=== PATIENT | male | born 1955 | race Caucasian/White ===

== ENCOUNTER → 2018-01-10 06:37 | Outpatient (CLI) | payer BC, SELFPAY ==
--- NOTE | 2018-01-10 08:23 | AAAS_ITS ---
Reason For Study: AAA screening Aorta Measurements Aorta Doppler Measurements Proximal aorta measures1.8cm. in cross-sectional Peak systolic flow velocities within the proximal axis. aorta measure 75.7 cm/sec. Proximal aorta measures1.8 x 1.8cm. in Peak systolic flow velocities within the mid longitudinal axis. aorta measure 101.0 cm/sec. Mid aorta measures1.6 x 1.7cm. in longitudinal Peak systolic flow velocities within the distal axis. aorta measure 86.7 cm/sec. Mid aorta measures1.7cm. in cross-sectional axis. Distal aorta measures1.5 x 1.6cm. in cross- sectional axis. Distal aorta measures1.5cm. in longitudinal axis. Procedure Aorta IVC Iliac vasculature or bypass grafts [id number]. Technically difficult due to body habitus. Iliac arteries not visualized. Exam performed in department. Interpretation Summary The dimensions of the intra-abdominal aorta are normal, without evidence of aneurysmal dilatation. The intra-abdominal aorta is patent, demonstrating normal, pulsatile arterial flow and peak systolic velocities. The iliac arteries were not visualized. Ordering Physician: Zain Del Rio Referring Physician: Robert Samson Performed By: Gwen Bojorquez RVT
--- NOTE | 2018-01-10 12:49 | STRESSREP ---
Stress Test Report Date: 04/04/2018 Procedure: Exercise tolerance test/imaging study Indications: CAD status post CABG Consent: Per the patient Procedure: The patient exercised on a Kodi protocol for 4 minutes completing Stage I and 1 minute of Stage II achieving a peak heart rate of 151 bpm (95 % predicted maximal heart rate) with a peak blood pressure 170/84 mmHg and a peak MET capacity of 5 METs. The baseline ECG demonstrated normal sinus rhythm; possible septal AL of indeterminate age. The peak exercise ECG demonstrated approximately 1 mm of horizontal/downsloping ST segment depression in leads II, III, aVF, and V4 through V6 with gradual resolution towards baseline in recovery. There were no cardiac dysrhythmias pretest, during exercise, or recovery. The functional capacity was considered decreased. There was no complaint of chest discomfort during exercise or recovery. The examination was discontinued secondary to dyspnea, leg discomfort, and fatigue. Impression: 1. Technically adequate (percent predicted maximal heart rate greater than 85%) exercise tolerance test 2. Peak exercise ECG proximally 1 mm of horizontal/downsloping ST segment depression in leads II, III, aVF, and V4 through V6 with gradual resolution towards baseline in recovery 3. Were no cardiac dysrhythmias pretest, during exercise, or recovery. 4. Nuclear images pending Myocardial perfusion imaging study: Technique: The patient was injected with 14.7 mCi of technetium 99m Cardiolite and subsequently rest SPECT Cardiolite nuclear imaging was obtained in the horizontal long, vertical long, and short axis views. The patient exercised on a Kodi protocol for 4 minutes completing Stage I and 1 minute of Stage II achieving a peak heart rate of 151 bpm (95 % predicted maximal heart rate) with a peak blood pressure 170/84 mmHg and a peak MET capacity of 5 METs. The patient was injected with 44.6 mCi of technetium 99m Cardiolite and subsequently stress SPECT Cardiolite nuclear imaging was obtained in the horizontal long, vertical long, and short axis views. A gated Cardiolite study at peak stress was obtained. Interpretation: Rest and stress SPECT Cardiolite nuclear imaging status post realignment, normalization, and attenuation correction, demonstrates of a small area of subtle diminished tracer uptake near the apical areas without significant change between rest and stress. There is end systolic thickening and brightening. The gated Cardiolite study demonstrates myocardial thickening and inward wall motion. The reported LVEF is 62 %. Impression: 1. Rest and stress SPECT Cardiolite nuclear imaging demonstrate myocardial perfusion changes appearing compatible with physiologic apical thinning with no myocardial perfusion changes consider diagnostic for associated stress-induced myocardial ischemia or previous myocardial injury/infarction. 2. The gated Cardiolite study reports an LVEF of 62%. This note was generated with [email or web address] software. It may contain incorrect words, spelling, and punctuation that were not noted in checking the note before signing.
--- NOTE | 2018-01-10 12:55 | STRESSREP_ITS ---
Stress Test Report Date: 04/04/2018 Procedure: Exercise tolerance test/imaging study Indications: CAD status post CABG Consent: Per the patient Procedure: The patient exercised on a Kodi protocol for 4 minutes completing Stage I and 1 minute of Stage II achieving a peak heart rate of 151 bpm (95 % predicted maximal heart rate) with a peak blood pressure 170/84 mmHg and a peak MET capacity of 5 METs. The baseline ECG demonstrated normal sinus rhythm; possible septal [place] of indeterminate age. The peak exercise ECG demonstrated approximately 1 mm of horizontal/downsloping ST segment depression in leads II, III, aVF, and V4 through V6 with gradual resolution towards baseline in recovery. There were no cardiac dysrhythmias pretest, during exercise, or recovery. The functional capacity was considered decreased. There was no complaint of chest discomfort during exercise or recovery. The examination was discontinued secondary to dyspnea, leg discomfort, and fatigue. Impression: 1. Technically adequate (percent predicted maximal heart rate greater than 85% ) exercise tolerance test 2. Peak exercise ECG proximally 1 mm of horizontal/downsloping ST segment depression in leads II, III, aVF, and V4 through V6 with gradual resolution towards baseline in recovery 3. Were no cardiac dysrhythmias pretest, during exercise, or recovery. 4. Nuclear images pending Myocardial perfusion imaging study: Technique: The patient was injected with 14.7 mCi of technetium 99m Cardiolite and subsequently rest SPECT Cardiolite nuclear imaging was obtained in the horizontal long, vertical long, and short axis views. The patient exercised on a Kodi protocol for 4 minutes completing Stage I and 1 minute of Stage II achieving a peak heart rate of 151 bpm (95 % predicted maximal heart rate) with a peak blood pressure 170/84 mmHg and a peak MET capacity of 5 METs. The patient was injected with 44.6 mCi of technetium 99m Cardiolite and subsequently stress SPECT Cardiolite nuclear imaging was obtained in the horizontal long, vertical long, and short axis views. A gated Cardiolite study at peak stress was obtained. Interpretation: Rest and stress SPECT Cardiolite nuclear imaging status post realignment, normalization, and attenuation correction, demonstrates of a small area of subtle diminished tracer uptake near the apical areas without significant change between rest and stress. There is end systolic thickening and brightening. The gated Cardiolite study demonstrates myocardial thickening and inward wall motion. The reported LVEF is 62 %. Impression: 1. Rest and stress SPECT Cardiolite nuclear imaging demonstrate myocardial perfusion changes appearing compatible with physiologic apical thinning with no myocardial perfusion changes consider diagnostic for associated stress-induced myocardial ischemia or previous myocardial injury/infarction. 2. The gated Cardiolite study reports an LVEF of 62%. This note was generated with [employer] software. It may contain incorrect words, spelling, and punctuation that were not noted in checking the note before signing.
== END ==
PROVIDERS: Family Provider Family Medicine; PCP Family Medicine; Visit Provider Internal Medicine Cardiovascular Disease
DX: I25.10 Atherosclerotic heart disease of native coronary artery without angina pectoris (principal)
CPT/HCPCS: 76706; 78452; 93017; A9500; A4216

== ENCOUNTER → 2018-10-31 16:07 | Outpatient (CLI) | payer BC, SELFPAY ==
[2018-08-29 09:26] VITALS: BMI 36.5
--- NOTE | 2018-10-31 12:55 | COLBX_PTH ---
PATIENT: CHRISTOPHE BERNAL Jr. LOC: [facility] U#:[id number] AGE/SX: 70/M ROOM: RE10/31/[address]: Dr. Alex Cevallos MD : 1955 BED: DIS: SPEC #: [id number] RECD: 10/31/18 15:29 STATUS: ABILIO FRANCI #: [id number] CAN: 10/31/18 12:[address]: Alex Cevallos DEPT: SURGICAL PATHOLOGY RECD BY: Pb Cooley ENTERED: 11/03/18 08:05 SP TYPE: COLON BX OTHR DR: Dr. Christophe Samson MD [facility] Tissues: Sigmoid colon biopsy Procedures: Surgery Specimen Level IV HEADER OPERATION: Colonoscopy with polypectomy PRE-OP DIAGNOSIS: High risk screening / polyp TISSUE SUBMITTED: Sigmoid polyp, rule out adenoma MICROSCOPIC DIAGNOSIS Sigmoid colon polyp, biopsy: Tubular adenoma. AM:brandie 11/04/18 MICROSCOPIC DESCRIPTION Slides are reviewed. GROSS DESCRIPTION Received in fixative is one container labeled with the patient's name and designated sigmoid polyp. The specimen consists of one irregular fragment of light pop soft tissue that measures 0.2 x 0.1 x 0.1 cm. The specimen is totally submitted in one cassette. / SJ:brandie 11/03/18 TC:5 CPT: 57585
== END ==
PROVIDERS: Family Provider Family Medicine; PCP Family Medicine; Referring Provider Internal Medicine Gastroenterology; Visit Provider Internal Medicine Gastroenterology
DX: Z13.9 Encounter for screening, unspecified (principal); K63.5 Polyp of colon
CPT/HCPCS: 88305

== ENCOUNTER → 2019-10-16 07:00 | Outpatient (CLI) | payer BC, SELFPAY ==
[2019-03-13 14:07] VITALS: BMI 36.8
--- NOTE | 2019-10-16 12:54 | STRESSREP_ITS ---
Stress Test Report Date: 10-16-2019 Procedure: Exercise tolerance test/imaging study Indications: CAD; PCI; CABG; status post mitral valve repair; status post PFO closure Consent: Per the patient Procedure: The patient exercised on a Kodi protocol for 6 minutes completing Stage II achieving a peak heart rate of 160 bpm (102 % predicted maximal heart rate) with a peak blood pressure 194/74 mmHg and a peak MET capacity of 7 METs. The baseline ECG demonstrated normal sinus rhythm. The peak exercise ECG demonstrated approximately 1 to [address] segment depression in leads II, III, aVF, and approximately [address] segment depression in leads V4 through V6 with gradual resolution towards baseline in recovery. There was an occasional PVC pretest, during exercise, and recovery; there was an isolated ventricular triplet during exercise and an isolated ventricular couplet during recovery. The functional capacity was considered decreased. There was no complaint of chest discomfort during exercise or recovery. The examination was discontinued secondary to dyspnea. Impression: 1. Technically adequate (percent predicted maximal heart rate greater than 85%) exercise tolerance test 2. Peak exercise ECG with approximately 1 to [address] segment depression in leads II, III, aVF, and approximately [address] segment depression in leads V4 through V6 with gradual resolution towards baseline in recovery 3. There was an occasional PVC pretest, during exercise, and recovery; there was an isolated ventricular triplet during exercise and an isolated ventricular couplet during recovery 4. Nuclear images pending Myocardial perfusion imaging study: Technique: The patient was injected with 15.0 mCi of technetium 99m Cardiolite and subsequently rest SPECT Cardiolite nuclear imaging was obtained in the horizontal long, vertical long, and short axis views. The patient exercised on a Kodi protocol for 6 minutes completing Stage II achieving a peak heart rate of 160 bpm (102 % predicted maximal heart rate) with a peak blood pressure 194/74 mmHg and a peak MET capacity of 7 METs. The patient was injected with 44.79= mCi of technetium 99m Cardiolite and subsequently stress SPECT Cardiolite nuclear imaging was obtained in the horizontal long, vertical long, and short axis views. A gated Cardiolite study at peak stress was obtained. Interpretation: Rest and stress SPECT Cardiolite nuclear imaging status post realignment, normalization, and attenuation correction, demonstrates a small area of subtle diminished tracer uptake near the apical segments without significant change between rest and stress. There is end systolic thickening and brightening. The gated Cardiolite study demonstrates myocardial thickening and inward wall motion. The reported LVEF is 61 %. Impression: 1. Rest and stress SPECT Cardiolite nuclear imaging demonstrate myocardial perfusion changes appearing compatible with physiologic apical thinning with no myocardial perfusion changes considered diagnostic for associated stress-induced myocardial ischemia. 2. The gated Cardiolite study reports an LVEF of 61 %. This note was generated with [employer] software. It may contain incorrect words, spelling, and punctuation that were not noted in checking the note before signing.
== END ==
PROVIDERS: Family Provider Family Medicine; PCP Family Medicine; Referring Provider Physician Assistant Medical; Visit Provider Physician Assistant Medical
DX: I25.10 Atherosclerotic heart disease of native coronary artery without angina pectoris (principal); I10 Essential (primary) hypertension; E78.2 Mixed hyperlipidemia
CPT/HCPCS: 78452; 93017; A9500; A4216

== ENCOUNTER → 2024-05-13 | Outpatient (CLI) | payer MEDICARE, BC, SELFPAY ==
--- NOTE | 2024-05-13 07:51 | ECHOD_ITS ---
Reason For Study: MV REPAIR Procedure This was a 2D Doppler, Color Flow transthoracic echocardiogram. The study was technically difficult. Exam performed in department. Left Ventricle Normal LV size. Mild concentric left ventricular hypertrophy. The left ventricular ejection fraction is 55 %. Right Ventricle Normal right ventricle. A moderator band is seen in the right ventricle. Atria The left atrium is severely enlarged. The right atrium is mildly enlarged. Mitral Valve Mitral valve annuloplasty ring noted. Mild to moderate mitral regurgitation. Tricuspid Valve Trivial tricuspid valve insufficiency. Unable to estimate RV systolic pressure due to insufficient tricuspid regurgitant envelope. Aortic Valve Trisinus/trileaflet aortic valve. Pulmonic Valve The pulmonic valve is not well visualized. Great Vessels Normal sized aortic root. Pericardium/Pleural No pericardial effusion. MMode/2D Measurements & Calculations LVIDd: 5.8 cm IVSd: 1.3 cm Ao root diam: 3.5 cm LVIDs: 4.2 cm LVPWd: 1.3 cm RVDd: 3.9 cm FS: 26.9 % LAV(MOD-bp): 78.4 ml LVAd ap4: 34.6 cm2 SV(MOD-sp4): 64.5 ml LAV(MOD-bp) Indexed: 33.7 ml/m2 LVLd ap4: 7.7 cm LAV(MOD-sp2): 74.9 ml EDV(MOD-sp4): 126.9 ml LAV(MOD-sp4): 83.4 ml EDV(sp4-el): 132.5 ml LVAs ap4: 22.8 cm2 LVLs ap4: 7.1 cm ESV(MOD-sp4): 62.4 ml ESV(sp4-el): 62.6 ml EF(MOD-sp4): 50.8 % EF(sp4-el): 52.8 % SV(sp4-el): 69.9 ml LA A4 area: 25.3 cm2 LA dimension(2D): 5.2 cm RA A4 area: 22.0 cm2 TAPSE: 1.7 cm Time Measurements MV dec time: 0.15 sec Doppler Measurements & Calculations MV E max rk: 130.0 cm/sec Lat Peak E' Rk: 4.8 cm/sec Med Peak E' Rk: 5.3 cm/sec MV A max rk: 33.5 cm/sec E/E' lat: 27.0 E/E' med: 24.7 MV E/A: 3.9 MV V2 max: 130.7 cm/sec Ao V2 max: 92.5 cm/sec LV V1 max: 70.5 cm/sec MV max P.8 mmHg Ao max P.4 mmHg LV V1 max P.0 mmHg MV V2 mean: 67.2 cm/sec Ao V2 mean: 65.7 cm/sec LV V1 mean P.98 mmHg MV mean P.2 mmHg Ao mean P.9 mmHg LV V1 mean: 47.1 cm/sec MV V2 VTI: 24.7 cm Ao V2 VTI: 17.3 cm LV V1 VTI: 13.1 cm AV (velocity ratio): 0.75 MR max rk: 497.8 cm/sec PA V2 max: 99.0 cm/sec MR max P.2 mmHg PA V2 mean: 59.1 cm/sec MR mean rk: 414.4 cm/sec MR mean P.7 mmHg MR VTI: 153.9 cm ECHO/Echo Complete Interpretation Summary The study was technically difficult. Mild concentric left ventricular hypertrophy. The left ventricular ejection fraction is 55 %. The left atrium is severely enlarged. The right atrium is mildly enlarged. Mitral valve annuloplasty ring noted. Mild to moderate mitral regurgitation. Re gurgitation may be underestimated. Consider cardiac MRI or [facility]ELSON for further evaluation if clinicall y indicated. Ordering Physician: Roxy Worrell Referring Physician: Shayy Mccormick Performed By: Lauren Gamble, TIFFANIE, RVT
== END | disposition home or self-care (01) ==
PROVIDERS: Referring Provider Physician Assistant Medical; Visit Provider Physician Assistant Medical
DX: Z98.890 Other specified postprocedural states (principal)
CPT/HCPCS: 93306